=== PATIENT | female | born 1970 | race Caucasian/White ===

== ENCOUNTER → 2019-09-19 | Outpatient (REF) | LOC: M LAB REF 13:47 | PROVIDERS: ATTEND Physician Assistant | DX: L82.1 Other seborrheic keratosis (principal) ==

== ENCOUNTER → 2021-06-01 | Outpatient (CLI) | payer BC, OTHER ==
[~2021-06-01] MED LIST: E-Z-PAQUE 96% w/w SUSP 176GM BTL As Ordered ONE; VARIBAR NECTAR 40% w/v 240ML SUSP BTL As Ordered ONE; VARIBAR PUDDING 40% w/v 230ML TUBE As Ordered ONE
--- NOTE | 2021-06-01 16:41 | REP ---
INDICATION: R47.02 DYSPHAGIA. COMPARISON: None. TECHNIQUE: The procedure was performed by Jolene Lozano [facility], under the direct supervision of Dr. Laurent. The procedure was performed with Lana Freitas from speech pathology present. 5 ml aliquots of thin, pudding, mixed fruit, soft food, hard food and pill consistency barium was administered. FINDINGS: Flash penetration was visualized with thin consistency barium. The detailed report of this examination will be provided by speech pathology. IMPRESSION: Flash penetration this described above, a detailed report will be provided by speech pathology. 1.1 minutes of fluoroscopy time was utilized for this procedure. Some fluoroscopic images are performed with last image hold technology. These images require no additional radiation <Electronically signed by Jolene Lozano > 06/01/21 [id number] <Electronically signed by Sanya Laurent > 06/01/21 [id number]
== END ==
LOC: M RAD 12:48
PROVIDERS: ATTEND Otolaryngology
DX: R47.02 Dysphasia (principal)

== ENCOUNTER → 2021-06-03 | Outpatient (CLI) | payer BC, OTHER ==
--- NOTE | 2021-06-03 13:23 | REP ---
INDICATION: THYROIDITIS. COMPARISON: None. TECHNIQUE: Real-time sonographic evaluation of thyroid performed. FINDINGS: Both lobes of the thyroid are small in size, right lobe measuring 1.8 x 0.5 x 0.5 cm and left lobe 2.8 x 0.5 x 0.5 cm. There is a nodule in the left lower pole which measures 3 x 5 x 3 mm. No other cystic or solid nodule is seen. IMPRESSION: Small size of both lobes of thyroid as discussed above. There is a 5 mm nodule in the left lower pole. <Electronically signed by Sanya Laurent > 06/03/21 131
== END ==
LOC: M RAD 12:07
PROVIDERS: ATTEND Otolaryngology
DX: E06.9 Thyroiditis, unspecified (principal); E04.1 Nontoxic single thyroid nodule

== ENCOUNTER → 2021-06-06 | Outpatient (REF) | payer BC, OTHER | LOC: M LAB REF 18:59 | PROVIDERS: ATTEND Physician Assistant | DX: D22.62 Melanocytic nevi of left upper limb, including shoulder (principal) ==

== ENCOUNTER → 2022-05-24 | Outpatient (CLI) | payer BC, OTHER | LOC: M RAD 09:16 | PROVIDERS: ATTEND Otolaryngology | DX: E04.1 Nontoxic single thyroid nodule (principal) ==

== ENCOUNTER → 2022-07-19 | Outpatient (REF) | payer OTHER | LOC: M PLALAB 15:10 | PROVIDERS: ATTEND Specialist | DX: N95.0 Postmenopausal bleeding (principal) ==